=== PATIENT | female | born 1955 | race Caucasian/White ===

== ENCOUNTER → 2016-12-15 | Outpatient (CLI) | payer MEDICARE, OTHER ==
[~2016-12-15] MED LIST: AMLO5TAB4 PO; CIPR500T4 PO; DOCU-144 PO; IODIXANOL LOCM 100 ML BTL ONE; IODIXANOL LOCM 50 ML BTL ONE; OMEP20CA16 PO; PERCOCET PO; SOD CHLORIDE 0.9% 100 ML ONE; VALS1TAB82 PO
[2016-12-15 09:47] LABS: CREATININE 0.47 mg/dl (0.44-1.00)
--- NOTE | 2016-12-15 18:13 | RADRPT ---
PROCEDURE: CT abdomen and pelvis without contrast. CLINICAL INDICATION: Biliary obstruction TECHNIQUE: CT scan of the abdomen and pelvis without contrast was performed and is reconstructed a t 2.5 mm contiguous axial intervals from the dome of the diaphragm to the inferior pubic rami.. The patient was then injected with intravenous contrast and axial imaging of the abdomen was obtained i n both the arterial and systemic venous phase of the injection. Delayed axial imaging of the abdome n pelvis was then performed. Sagittal and coronal reformatted images were obtained from the axial s ource images. The calculated radiation dose measures 1911 mGy centimeters. The CTDI measures 19 mGy. COMPARISON: CT abdomen pelvis September 23, 2016 FINDINGS: The lung bases are clear of any infiltrate or nodule. No effusion is seen. There are coronary arter y calcifications. The liver is of normal size. The left lobe is relatively atrophic. Noted is a plastic biliary endo prosthesis extending from the left hepatic duct through the common bile duct into the duodenum. The re is severe dilatation of the intrahepatic ducts in the left lobe. There is mild dilatation of the right intrahepatic ducts. No mass is identified. No stones are seen within the ducts. There has been interval removal of the gallbladder. No splenic, adrenal or pancreatic abnormalities present. pancreatic duct is not dilated. Kidneys are of normal size and contour. No hydronephrosis, calculus or solid masses seen. There ar e multiple cortical cysts of both kidneys, the largest of which is in the lower pole of the left kid charly measuring approximately 5 cm in diameter. Ureters are of normal course and caliber with no stone . No bladder mass or stone is present. Again noted is a complex solid and cystic mass arising out o f the left dorothy pelvis measuring approximately 13 cm AP by 12 cm TR by 14 cm CC. This is not change d appreciably in size in the interim. This displaces the uterus to the right. There is no aneurysm. Calcifications are seen in the wall of the aorta. No adenopathy is present. No bowel mass or obstruction is present. The appendix is normal. No phlegmon, ascites or pneumop eritoneum is visualized. 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 IMPRESSION: Interval cholecystectomy. Marked dilatation left intrahepatic ducts despite presence of left-sided plastic biliary endoprosthesis. Question stent occlusion. No stones visualized, however, cholangio carcinoma cannot be ruled out. Large complex solid and cystic mass arising out of the left dorothy pelvis suspicious for either cystad enoma or cystadenocarcinoma of the left ovary. Vascular calcifications. Renal cysts. Rotary levoscoliosis lumbar spine with degenerative disk disease. .Ozzie Muñoz MD, Date Time Electronically viewed and signed by .Ozzie Muñoz MD, on 12/15/2016 18:12 .A/
== END | disposition home or self-care (01) ==
LOC: LAB 09:02
PROVIDERS: ATTEND Transplant Surgery
DX: R93.2 Abnormal findings on diagnostic imaging of liver and biliary tract (principal)
CPT/HCPCS: 74178; 82565; 84520; Q9967

== ENCOUNTER 2017-02-10 10:52 | Outpatient (CLI) | payer MEDICARE, OTHER ==
[~2017-02-10] VITALS: Ht 162.6 cm; Wt 83.6 kg
[~2017-02-10 10:52] MED LIST changes: +AMLO2.5T78 PO; +ASPI81TA3 PO; +ATOR10TA65 PO; +HYDR-906 PO; -IODIXANOL LOCM 100 ML BTL ONE; -IODIXANOL LOCM 50 ML BTL ONE; +LOSA100T7 PO; +OXYC-209 PO; +PANT40TA3 PO; -SOD CHLORIDE 0.9% 100 ML ONE; +TRAM50TA2 PO
[2017-02-10 10:57] VITALS: BP 164/77; PULSE 69; RESP 18; Ht 162.6 cm; Wt 83.6 kg
--- NOTE | 2017-02-10 11:42 | CONS ---
Date/Time of Note Date/Time of Note DATE: 02/10/17 TIME: 11:40 Assessment/Plan Assessment/Plan Additional Assessment/Plan [facility] Subsequent Outpatient Consultation PLACE OF SERVICE: [facility] at [facility] DATE OF CONSULTATION: 02/10/2017 IMPRESSION AND PLAN: Left-sided biliary system dilatation, likely benign in nature, but need more workup and definitive plans for the stent (removal vs exchange). I recommended EUS eval. In addition, her ovarian mass needs further mill laborer eval. Answered all questions and patient agreed to the plan. Also discussed with Dr. Cortez over the phone. With above assessment, I recommended the followin. EUS 2. Drafter Electronic (or preferably mill laborer/onc) eval of ovarian cystic mass 3. Multidisciplinary tumor board presentation 4. F/u with us after above is done Thank you again for allowing us to participate in the care of this very pleasant lady and her wonderful family. If there are any questions, please feel free to call me at [phone]. TOTAL VISIT TIME: 45 minutes of which more than half was spent in [id number] discussion with the patient as well as coordination of care between multiple physicians and providers. Updated Clinical Summary: A very pleasant 61-year-old lady, well known to me from initial visit at [facility] inpatient setting on 07/13/16 as a referral from Dr. Cameron for L-sided biliary system dilatation, with comorbid issues of BMI of 31.6 (previously 30.22 Jun 2016 ), hypertension and gallbladder disease, s/p lap renetta Sep 2016, as well as previous right ovarian cyst removal (more than 20 years ago in [place]) and C- section in the past. Working diagnosis was intrahepatic choledocholithiasis with a narrowing in the proximal portion of the left biliary system. No obvious abnormality of the right biliary system. No enhancing lesion on the MRCP with triple phase IV contrast liver-dedicated MRI 07/12/16. There was evidence of a stone within the left biliary system and perhaps a small polyp or other stone in the same general area. CA 19-9 elevation. S/p ERCP with sphincterotomy with balloon dilatation of the ampulla with Spyglass cholangioscopy with stone removal and stent placement (8.5 Fr x 15 cm) by Dr. Cortez at [facility] on 07/14/16 ( showed obstruction at the takeoff of the left intrahepatic ducts proximal to the bifurcation, spyglass showing multiple stones in the intrahepatic system). Status post laparoscopic cholecystectomy 09/24/16 for acute cholecystitis and empyema (no evidence of malignancy) at [facility] by Dr. Souza. Comorbidities: 1. Hypertension. 2. History of gallstone disease known from the past. 3. Large complex left adnexal mass, presumably ovarian in origin. 4. BMI of 30.5. 5. Benign renal cysts 6. Hepatomegaly 7. Cholelithiasis 8. Mild hiatal hernia 9. Vascular calcifications. 10. Degenerative changes within the spine 11. Status post . 12. Status post ovarian cystectomy. 13. Status post EGD 06/14/15 (distal esophagitis; hiatal hernia; gastritis) 14. Status post colonoscopy 06/14/15 (2 small 3-4 mm polyps in the ascending colon, ablated; diverticulosis, internal hemorrhoids; bx: diminutive tubular adenoma) 15. Status post ERCP with sphincterotomy with balloon dilatation of the ampulla with Spyglass cholangioscopy with stone removal and stent placement (8.5 Fr x 15 cm) by Dr. Cortez at [facility] on 07/14/16 (showed obstruction at the takeoff of the left intrahepatic ducts proximal to the bifurcation, spyglass showing multiple stones in the intrahepatic system) 16. Status post laparoscopic cholecystectomy 09/24/16 for acute cholecystitis and empyema (no evidence of malignancy) at [facility] by Dr. Souza 17. Multiple prior bandings for hemorrhoids 18. Dyslipidemia 19. Smoker HISTORY OF PRESENT ILLNESS: The patient is a very pleasant 61-year-old lady well known to me from Jul 2016 visit for dilated L biliary system, following up after about 7 months (note my office had tried to reach her during this entire time without success). Patient is doing well without any major complaints. No issues after her lap renetta. Appetite and weight stable. No issues with diarrhea , constipation, blood in the stool or urine, or abdominal pain/discomfort. ALLERGIES: CEPHALEXIN WITH UNKNOWN REACTION. MEDICATIONS: 1. Amlodipine. 2. Atorvastatin. 3. Losartan. 4. Aspirin. 5. Omeprazole. 6. Vit D SOCIAL HISTORY: The patient lives with her family; has 2 children. She occasionally smokes 1 cigarette and does not report any significant drinking or any intravenous drug use. FAMILY HISTORY: Other than HTN and TN, no major medical, surgical or oncologic data reported by the patient or noted in her chart regarding her family history. REVIEW OF SYSTEMS: A complete 14-point review of systems was negative for pertinent positives or pertinent negatives except for reported above. PHYSICAL EXAMINATION: GENERAL: The patient appears to be a very pleasant lady of [place] descent, sitting in a chair comfortably and in no acute distress. BMI of 31.6 (previously 30.5). VITAL SIGNS: Stable and she is afebrile. Please see EHR. HEENT: Normocephalic and atraumatic. Her extraocular muscles and hearing are grossly intact bilaterally and symmetrically. Her sclerae are anicteric. Her oral cavity is clear and her oral mucosa appeared to be pink and moist. She has fair dentition with some missing teeth and perhaps wearing a bridge on the top jaw. NECK: Supple. There is no lymphadenopathy or JVD. There is no submental, submandibular or supraclavicular lymphadenopathy. CHEST: Rises symmetrically with each breath, and she is breathing comfortably. There are no audible wheezes, rales or rhonchi on the gross exam. PULSES: Her carotid pulses are palpable bilaterally and symmetrically in her neck. Her radial pulse is palpable on the left wrist. EXTREMITIES: Lower extremities contain no pitting edema around the ankles bilaterally and symmetrically. ABDOMEN: Soft, nontender and nondistended. Incisions are c/d/i w/o obvious e/e/ d/h. There is no evidence of organomegaly, caput medusae or engorged subcutaneous veins, or ascites. There are no peritoneal signs or guarding. SKIN: Appears to be pink and feels warm to touch. NEUROLOGIC: She is awake, alert, and follows commands appropriately. LABORATORY DATA: More recent labs (Sep 2016) in the paper chart and reviewed. Rather unremarkable. In Jul 2016: White blood cell count 11.2, hemoglobin 11.7, platelets 175. Electrolytes were normal with slightly low potassium at 3.4, creatinine 0.57, bilirubin 0.5, AST 51, ALT 180, alkaline phosphatase 120, albumin 2.9, CA 19-9 of 810. CEA 1.9. Alpha fetoprotein 3.86, lipase 56. Lactic acid 1.2. INR 1.13. Urinalysis negative. Three out of 4 blood cultures were negative and the positive one was for alpha hemolytic strep. IMAGING: Pertinent findings reviewed above. Right upper quadrant ultrasound showed hepatomegaly and cholelithiasis. CT 12/15/16 abd/pelvis: Marked dilatation of the left intrahepatic ducts despite presence of left-sided plastic biliary stent. No stones; cholangiocarcinoma cannot be ruled out. Large complex solid and cystic mass arising out of the left dorothy-pelvis suspicious for either cystadenoma or cystadenocarcinoma of the L ovary. Vascular calcifications. Note that I personally reviewed all of the available and pertinent images and I agree in general with their overall reported findings. Consultation Date/Type/Reason Admit Date/Time Initial Consult Date Exam/Review of Systems Vital Signs Vitals Vital Signs Date Time Temp Pulse Resp B/P Pulse Ox O2 Delivery O2 Flow Rate FiO2 02/10/17 10:57 98.1 69 18 164/77 95 Room Air PAULINE PIERRE M.D. Feb 10, 2017 11:42
== END 2017-02-10 16:51 | disposition home or self-care (01) ==
LOC: HPC 10:52
PROVIDERS: ATTEND Transplant Surgery
DX: K83.9 Disease of biliary tract, unspecified (principal); N83.209 Unspecified ovarian cyst, unspecified side; I10 Essential (primary) hypertension; E78.5 Hyperlipidemia, unspecified; F17.210 Nicotine dependence, cigarettes, uncomplicated; Z90.49 Acquired absence of other specified parts of digestive tract
CPT/HCPCS: G0463